=== PATIENT | female | born 1975 | race Caucasian/White ===

== ENCOUNTER → 2017-05-16 | Outpatient (CLI) | payer BC ==
[~2017-05-16] MED LIST: PREN-3
--- NOTE | 2017-05-16 17:44 | Diagnostic Imaging Report ---
Bilateral screening mammogram 2D views with tomosynthesis The current study was also evaluated with a Computer Aided Detection (CAD) system. Indication: Screening. No current complaints stated on the questionnaire. COMPARISON: None. FINDINGS: The breasts are composed of scattered fibroglandular densities. There is a partially visualized oval asymmetry along the posterior aspect of the right CC projection far posterior area measuring about 1 cm. The left breast demonstrates no mass, architectural distortion or suspicious cluster of calcification. IMPRESSION: Focal compression views with an exaggerated medial CC projection and ultrasound evaluation is recommended for far posteromedial right breast asymmetry. BI-RADS 0. ACR BI-RADS Category 0: Incomplete. (Needs additional imaging evaluation). Result letter will be mailed to the patient. Note: At least 10% of breast cancer is not imaged by mammography. Dictated by: Dictated on workstation # [id number]
== END ==
LOC: RAD 10:06
PROVIDERS: ATTEND Obstetrics & Gynecology
DX: Z12.31 Encounter for screening mammogram for malignant neoplasm of breast (principal); N64.89 Other specified disorders of breast
CPT/HCPCS: 77067

== ENCOUNTER 2017-06-30 15:12 | Day surgery (SDC) | payer BC ==
[~2017-06-30] VITALS: Ht 175.3 cm; Wt 114.8 kg
--- OUTSIDE RECORDS SUMMARY | 2017-06-30 15:16 | XMS REPORT ---
Author Author LINDSEY PARSON Organization [employer] Address Unknown Phone Unavailable Care Team Providers Care [employer] Librarian Name Role Phone LINDSEY PARSON CP Unavailable Allergies No Known Allergies Problems Problem Type Condition Code Onset Dates Condition Status Problem Need for prophylactic vaccination and inoculation, Influenza V04.81 Active Assessment Encounter for immunization Z23 Active Problem Acute upper respiratory infections of unspecified site 465.9 Active Medications No Known Medications Procedures Procedure Coding System Code Date SINGLE IMMUNIZATION ADMIN CPT-4 76134 Apr 30, 2016 FLUARIX QUAD P-FREE 3 AND UP .50 2015 CPT-4 35097 Apr 30, 2016 Results No Known Results Immunizations Vaccine Administration Date FLUARIX QUAD P-FREE 3 AND UP .50 2015Apr 30, 2016 Summary Purpose [employer] Submission
--- OUTSIDE RECORDS SUMMARY | 2017-06-30 15:16 | XMS REPORT ---
Author LINDSEY Velázquez Organization [employer] Address Unknown Phone Unavailable Care Team Providers Care Lead Loader Name Role Phone LINDSEY PARSON CP Unavailable Allergies No Known Allergies Problems Problem Type Condition Code Onset Dates Condition Status Problem Need for prophylactic vaccination and inoculation, Influenza V04.81 Active Assessment Encounter for immunization Z23 Active Problem Acute upper respiratory infections of unspecified site 465.9 Active Medications No Known Medications Procedures Procedure Coding System Code Date SINGLE IMMUNIZATION ADMIN CPT-4 45169 May 13, 2015 TDAP (BOOSTRIX) CPT-4 94234 May 13, 2015 Results No Known Results Immunizations Vaccine Administration Date TDAP (BOOSTRIX) May 13, 2015 Summary Purpose [employer] Submission
--- OUTSIDE RECORDS SUMMARY | 2017-06-30 15:16 | XMS REPORT ---
Author LINDSEY Velázquez Organization [employer] Address Unknown Phone Unavailable Care Team Providers Care Supervisor [employer] Name Role Phone LINDSEY PARSON CP Unavailable Allergies No Known Allergies Problems Problem Type Condition Code Onset Dates Condition Status Problem Need for prophylactic vaccination and inoculation, Influenza V04.81 Active Assessment Encounter for immunization Z23 Active Problem Acute upper respiratory infections of unspecified site 465.9 Active Medications No Known Medications Procedures Procedure Coding System Code Date SINGLE IMMUNIZATION ADMIN CPT-4 43335 May 01, 2015 FLUARIX QUAD (3 & UP)-GSK-2014 CPT-4 96409 May 01, 2015 Results No Known Results Immunizations Vaccine Administration Date FLUARIX QUAD (3 & UP)-GSK-2014May 01, 2015 Summary Purpose [employer] Submission
--- OUTSIDE RECORDS SUMMARY | 2017-06-30 15:16 | XMS REPORT | Continuity of Care Document ---
Author Author [facility] Organization [facility] Address Unknown Phone Unavailable Allergies Active Description Code Type Severity Reaction Onset Reported/Identified Relationship to Patient Clinical Status Yes No Known Drug Allergies [id number] Drug Allergy Unknown N/ A 06/10/2009 Yes Amoxicillin Drug Allergy 07/11/2012 Yes Amoxicillin Drug Allergy N/A N/A 07/11/2012 Medications Problems Date Dx Coded Attending Type Code Diagnosis Diagnosed By 06/13/2009 Ot 285.1 AC POSTHEMORRHAG ANEMIA 06/13/2009 Ot 285.9 ANEMIA NOS 06/13/2009 Ot 648.21 ANEMIA-DELIVERED 06/13/2009 Ot 648.22 ANEMIA-DELIVERED W P/P 06/13/2009 Ot 654.21 PREV DELIVRY W/ OR W/O MENT ANT 06/13/2009 Ot 663.31 CORD ENTANGLE NEC-DELIV 06/13/2009 Ot V06.1 [id number], COMBINED [ 06/13/2009 Ot V27.0 DELIVER-SINGLE LIVEBORN 05/19/2012 NERY ZHONG APRN R V04.81 FLU DX (3 YRS AND ABOVE, IM) 05/19/2012 SHILPA PARSON APRNYL A V04.81 FLU DX (3 YRS AND ABOVE, IM) 05/19/2012 BLANK PUENTES LINDSEY A V04.81 FLU DX (3 YRS AND ABOVE, IM) 07/11/2012 NERY ZHONG APRN R 465.9 UPPER RESPIRATORY INFECTION 07/11/2012 SHILPA PARSON APRNYL A 465.9 UPPER RESPIRATORY INFECTION 07/11/2012 SHILPA PARSON APRNYL A 465.9 UPPER RESPIRATORY INFECTION 11/06/2015 Ot 592.0 11/06/2015 Ot 780.60 11/06/2015 VERNON FOUNTAIN TRUMPET PLAYER Ot 591 11/06/2015 VERNON FOUNTAIN TRUMPET PLAYER Ot 592.0 11/06/2015 VERNON FOUNTAIN TRUMPET PLAYER Ot 599.0 11/06/2015 VERNON FOUNTAIN TRUMPET PLAYER Ot 724.5 11/06/2015 VERNON FOUNTAIN TRUMPET PLAYER Ot V13.01 02/02/2017 VERNON FOUNTAIN TRUMPET PLAYER Ot 591 HYDRONEPHROSIS 02/02/2017 VERNON FOUNTAIN TRUMPET PLAYER Ot 592.0 CALCULUS OF KIDNEY 02/02/2017 VERNON FOUNTAIN TRUMPET PLAYER Ot 599.0 URIN TRACT INFECTION NOS 02/02/2017 VERNON FOUNTAIN TRUMPET PLAYER Ot 724.5 BACKACHE NOS 02/02/2017 VERNON OFUNTAIN TRUMPET PLAYER Ot V13.01 PERSONAL HISTORY OF URINARY CALCULI 05/25/2017 RICHARD HO DO Ot N64.89 OTHER SPECIFIED DISORDERS OF BREAST 05/25/2017 RICHARD HO DO Ot Z12.31 ENCNTR SCREEN MAMMOGRAM FOR MALIGNANT NE 06/20/2017 RICHARD HO DO Ot R92.8 OTH ABN AND INCONCLUSIVE FINDINGS ON DX Procedures Code Description Performed By Performed On 72.79 VACUUM EXTRACT DEL NEC 06/10/2009 74.1 LOW CERVICAL 06/10/2009 99.77 APPL/ADMIN OF AN ADHESION BARRIER SUBSTA 06/10/2009 40713 STREP A (IN-HOUSE) 07/11/2012 Results Encounters ACCT No. Visit Date/Time Discharge Status Pt. Type Provider Facility Loc./Unit Complaint [id number] 06/01/2017 14:17:00 2016 23:59:59 CLS Outpatient RICHARD HO DO [facility] RAD R92.8 ABNORMAL MAMMO OF RIGHT BREAST [id number] 05/16/2017 10:06:00 2016 23:59:59 CLS Outpatient RICHARD HO DO [facility] RAD SCREENING [id number] 02/05/2014 08:39:00 2013 23:59:59 CLS Outpatient VERNON FOUNTAIN TRUMPET PLAYER [facility] RAD BACK PAIN, PREV HX OF STONES , [id number] 01/26/2011 18:38:00 Document Registration [id number] 06/10/2009 05:54:00 Document Registration [id number] 05/06/2014 08:20:00 05/06/2014 23: 59:59 CLS Outpatient LINDSEY PARSON APRN [id number] 05/21/2013 10:36:00 05/21/2013 23: 59:59 CLS Outpatient LINDSEY PARSON APRN [id number] 07/11/2012 14:32:00 07/11/2012 23: 59:59 CLS Outpatient NERY ZHONG APRN
[2017-06-30] MEDS ORDERED: CLINDAMYCIN 900 MG/NS 50 ML IVPB IV ONE ×2 (15:30)
[2017-06-30 15:31] VITALS: BP 118/55
[2017-06-30] MEDS ORDERED: LACTATED RINGERS 1,000 ML IV PRN (15:32)
[2017-06-30] MEDS ORDERED: fentaNYL INJECTION 100 MCG/2 ML AMP ONE ×2 (15:38→15:59)
[2017-06-30] MEDS ORDERED: SEVOFLURANE (ULTANE) 15 ML INHAL SOLN ONE ×3 (15:38→16:21)
[2017-06-30] MEDS ORDERED: LIDOCAINE PF 2% 5 ML (XYLOCAINE) VIAL ONE (15:38)
[2017-06-30] MEDS ORDERED: proPOfol 200 MG/20 ML (DIPRIVAN) VIAL IV ONE (15:38)
[2017-06-30] MEDS ORDERED: MIDAZOLAM 2 MG/2 ML (VERSED) VIAL ONE (15:38)
[2017-06-30] MEDS ORDERED: DEXAMETHASONE 10 MG/ML (DECADRON) 1 ML VIAL ONE (15:38)
[2017-06-30] MEDS ORDERED: METOCLOPRAMIDE INJ 10 MG/2 ML (REGLAN) IV ONE (15:45)
[2017-06-30] MEDS ORDERED: ONDANSETRON 4 MG/2 ML (SDV) Z0FRAN IV ONE (15:45)
[2017-06-30] MEDS ORDERED: FAMOTIDINE 20MG/2ML IV (PEPCID) IV ONE (15:45)
[2017-06-30] MEDS ORDERED: LIDOCAINE/EPI 1%-1:200,000 (XYLOCAINE) 10 ML VIAL ONE (16:07)
[2017-06-30] MEDS ORDERED: morphine INJ 10 MG/ML 1ML (SYR OR VIAL) IVP PRN (16:15)
[2017-06-30] MEDS ORDERED: ONDANSETRON 4 MG/2 ML (SDV) Z0FRAN IVP PRN (16:15)
[2017-06-30] MEDS ORDERED: PHENYLEPHRINE 100 MCG/ML 10 ML (ANESTHESIA) SYR ONE (16:19)
--- NOTE | 2017-06-30 16:25 | Progress Note-Post Operative ---
Post-Operative Progess Note Surgeon (s)/Color Stripper (s) Surgeon DANILO LINDO DO Color Stripper: Vinay Alba MS III Pre-Operative Diagnosis RIGHT BREAST ABCESS Post-Operative Diagnosis Right Breast Abscess Right Breast mass Procedure & Operative Findings Date of Procedure 06/30/17 Procedure Performed/Findings 1. Excision breast mass 2. I&D breast abscess with packing Anesthesia Type GET Estimated Blood Loss Estimated blood loss (mL): less than 5ml Specimens/Packing Specimens Removed 1. right breast mass 2. abscess culture DANILO LINDO DO Jun 30, 2017 16:25
[2017-06-30] MEDS ORDERED: HYDR-3820 PO (16:26)
--- NOTE | 2017-06-30 16:28 | Discharge Inst-Surgical ---
Discharge Inst-Surgical Depart Medication/Instructions New, Converted or Re-Newed RX: RX Given to Pt/Family Patient Instructions Follow up Appt: Make appointment for 1 week. Instructions: No strenuous activity. May shower in 24 hours, no tub bath or soaking. Use incentive spirometer at home as directed. No Smoking Skin/Wound Care: May remove bandages in am; go to Dr. Soliman's office tomorrow for dressing change. Symptoms to Report: Appetite Changes, Extremity Discoloration, Numbness/Tingling, Swelling Increased , Bleeding Excessive, Eyesight Changes, Pain Increased, Urine Color Change, Constipation(Persistent), Fever over 101 degree F, Pain/Pressure in chest, Urinating Difficulty, Cough Up/Vomit Blood, Heart Beat Irreg/Pounding, Pain/ Pressure in jaw, Vaginal Bleeding Increase, Cramps in feet or legs, Lightheadedness, Pain/Pressure in shoulder, Diarrhea(Persistent), Memory Changes Suddenly, Questions/Concerns, Weight gain consecutive days, Dizziness/ Fainting, Nausea/Vomiting, Shortness of Breath, Weight gain over 2 pounds If questions or concerns contact your physician Or seek help at emergency department. Activity Activity as Tolerated: Yes Activity Instructions: Avoid Stress to Incision Driving Instructions: No Driving/Refer to Dr. Paula Discharge Diet: No Restrictions Diet After 24 Hours: Clear Liquid if Nauseous If Any Problems/Questions/Issu: Contact Your Physician, Go to Emergency Room Skin/Wound Care Infection Signs and Symptoms: Increased Redness, Foul Odor of Wound, Increased Drainage, Skin Itchy or Has a Rash, Increased Swelling, Temperature Above 101 F Bathing Instructions: Shower Ice Pack: Ice On and Off Site DANILO SOLIMAN DO Jun 30, 2017 16:28
[2017-06-30 17:15] VITALS: BP 131/72
[2017-06-30 17:45] VITALS: BP 129/69
[2017-06-30 18:15] VITALS: BP 132/72
[2017-06-30 18:20] VITALS: BP 132/72
--- NOTE | 2017-06-30 22:32 | OPERATIVE REPORT ---
DATE OF SERVICE: 06/30/2017 PREOPERATIVE DIAGNOSIS: Right breast abscess. POSTOPERATIVE DIAGNOSES: 1. Right breast mass. 2. Right breast abscess. PROCEDURE: 1. Excision of right breast mass. 2. Incision and drainage with packing, right breast. SURGEON: Te Soliman D.O. HOP WEIGHER: Medical student, Vinay Nguyen. SPECIMEN: 1. Right breast mass. 2. Abscess culture. BLOOD LOSS: Less than 5 mL FLUIDS: Per Anesthesia. POSTOPERATIVE CONDITION: Stable. INDICATIONS FOR PROCEDURE: The patient is a 42-year-old female who has been having drainage and abscess, redness and pain in the right breast, sent over for incision and drainage with possible packing. FINDINGS: The patient had a large purulent abscess, but also noted a mass in this area that looked like it might have been just a cyst. This was excised and removed, also got a culture of the purulent fluid. PROCEDURE NOTE: After informed consent was obtained, the patient was brought to the operating room, placed on the table in supine position. She was sterilely prepped and draped in normal fashion. Local lidocaine was used to infiltrate the skin above the red inflamed area and fullness in the right breast as well as around it in a regional block. I made an incision with a #11 blade, carried down through the skin into the subcutaneous tissue. Upon entering, immediately got yellowish-whitish what looked like purulent fluid. This was expressed, got fluid, got a culture, sent to pathology and then carefully started flushing this out with saline, but while doing this noticed a mass and so elected to remove this mass, grasped the skin edges and created flaps superiorly and inferiorly cutting around this with a Bovie electrocautery and cutting this mass out en bloc. It looked like it may have just been an infected cyst, we will send to pathology for determination. Able to completely remove this mass en bloc and send it to pathology. Copiously irrigated with normal saline. Looked around, did not see any other obvious pathology. Bleeding was controlled with Bovie electrocautery. Did not see any other purulent fluid or necrotic tissue and at this point elected to close the incision that was made with just a single 4-0 undyed Monocryl subcuticular stitch right in the middle of the incision and then placed iodoform packing on either side of this suture into the wound. Area was then cleaned and dried, dressing placed. The patient then transferred to recovery room in stable condition. Sponges and needle count correct at the end of the case. Job ID: [id number] DocumentID: [id number] Dictated Date: 06/30/2017 16:31:59 Pony Trimmer Date: 06/30/2017 20:15:43 Dictated By: TE SOLIMAN DO
== END 2017-06-30 18:20 | disposition home or self-care (01) ==
LOC: SDC 15:12
PROVIDERS: ATTEND Surgery
DX: N61.1 Abscess of the breast and nipple (principal); N63.10 Unspecified lump in the right breast, unspecified quadrant; G56.91 Unspecified mononeuropathy of right upper limb
CPT/HCPCS: 84703; 87070; 87075; 87205; 94664

== ENCOUNTER 2017-09-22 05:37 | Outpatient (CLI) | payer BC ==
[~2017-09-22] VITALS: Ht 175.3 cm; Wt 122.5 kg
[~2017-09-22 05:37] MED LIST changes: +HYDR-3820 PO
[2017-09-22] MEDS ORDERED: SERT25TA PO (12:39)
[2017-09-22] MEDS ORDERED: LACT1CAP62 PO (12:39)
== END 2017-09-22 12:46 ==
LOC: PREOP 05:37
PROVIDERS: ATTEND Surgery
DX: Z01.818 Encounter for other preprocedural examination (principal); N63.0 Unspecified lump in unspecified breast

== ENCOUNTER 2017-09-29 05:57 | Day surgery (SDC) | payer BC ==
[~2017-09-29] VITALS: Ht 175.3 cm; Wt 122.5 kg
[~2017-09-29 05:57] MED LIST changes: +LACT1CAP62 PO; +SERT25TA PO
--- OUTSIDE RECORDS SUMMARY | 2017-09-29 06:00 | XMS REPORT | Continuity of Care Document ---
Author Author [facility] Organization [facility] Address Unknown Phone Unavailable Allergies Active Description Code Type Severity Reaction Onset Reported/Identified Relationship to Patient Clinical Status Yes No Known Drug Allergies [id number] Drug Allergy Unknown N/A 06/10/2009 Yes Amoxicillin Drug Allergy 07/11/2012 Yes Amoxicillin Drug Allergy N/A N/A 07/11/2012 Yes amoxicillin [id number] Drug Allergy Mild HIVES 09/22/2017 Medications There is no data. Problems Date Dx Coded Attending Type Code Diagnosis Diagnosed By 06/13/2009 Ot 285.1 AC POSTHEMORRHAG ANEMIA 06/13/2009 Ot 285.9 ANEMIA NOS 06/13/2009 Ot 648.21 ANEMIA- DELIVERED 06/13/2009 Ot 648.22 ANEMIA- DELIVERED W P/P 06/13/2009 Ot 654.21 PREV DELIVRY W/ OR W/O MENT ANT 06/13/2009 Ot 663.31 CORD ENTANGLE NEC-DELIV 06/13/2009 Ot V06.1 DIPHTHERIA- TETANUS-PERTUSSIS, COMBINED [ 06/13/2009 Ot V27.0 DELIVER- SINGLE LIVEBORN 05/19/2012 NERY ZHONG APRN R V04.81 FLU DX (3 YRS AND ABOVE, IM) 05/19/2012 SHILPA PARSON APRNYL A V04.81 FLU DX (3 YRS AND ABOVE, IM) 05/19/2012 SHILPA PARSON APRNYL A V04.81 FLU DX (3 YRS AND ABOVE, IM) 07/11/2012 NERY ZHONG APRN R 465.9 UPPER RESPIRATORY INFECTION 07/11/2012 LINDSEY PARSON APRN A 465.9 UPPER RESPIRATORY INFECTION 07/11/2012 SHILPA PARSON APRNYL A 465.9 UPPER RESPIRATORY INFECTION 11/06/2015 Ot 592.0 11/06/2015 Ot 780.60 11/06/2015 VERNON FOUNTAIN Ot 591 11/06/2015 VERNON FOUNTAINP Ot 592.0 11/06/2015 VERNON FOUNTAIN AIRCRAFT ENGINE MECHANIC Ot 599.0 11/06/2015 VERNON FOUNTAIN AIRCRAFT ENGINE MECHANIC Ot 724.5 11/06/2015 VERNON FOUNTAIN AIRCRAFT ENGINE MECHANIC Ot V13.01 02/02/2017 VERNON FOUNTAIN AIRCRAFT ENGINE MECHANIC Ot 591 HYDRONEPHROSIS 02/02/2017 VERNON FOUNTAIN AIRCRAFT ENGINE MECHANIC Ot 592.0 CALCULUS OF KIDNEY 02/02/2017 VERNON FOUNTAIN AIRCRAFT ENGINE MECHANIC Ot 599.0 URIN TRACT INFECTION NOS 02/02/2017 VERNON FOUNTAIN AIRCRAFT ENGINE MECHANIC Ot 724.5 BACKACHE NOS 02/02/2017 VERNON FOUNTAIN AIRCRAFT ENGINE MECHANIC Ot V13.01 PERSONAL HISTORY OF URINARY CALCULI 05/25/2017 RICHARD HO DO Ot N64.89 OTHER SPECIFIED DISORDERS OF BREAST 05/25/2017 RICHARD HO DO Ot Z12.31 ENCNTR SCREEN MAMMOGRAM FOR MALIGNANT NE 06/20/2017 RICHARD HO DO Ot R92.8 OTH ABN AND INCONCLUSIVE FINDINGS ON DX 06/30/2017 DANILO LINDO DO Ot G56.91 UNSPECIFIED MONONEUROPATHY OF RIGHT UPPE 06/30/2017 DANILO LINDO DO Ot N61.1 ABSCESS OF THE BREAST AND NIPPLE 06/30/2017 DANILO LINDO DO Ot N63.10 UNSPECIFIED LUMP IN THE RIGHT BREAST, UN 07/04/2017 DANILO LINDO DO Ot G56.91 UNSPECIFIED MONONEUROPATHY OF RIGHT UPPE 07/04/2017 DANILO LINDO DO Ot N61.1 ABSCESS OF THE BREAST AND NIPPLE 07/04/2017 DANILO LINDO DO Ot N63.10 UNSPECIFIED LUMP IN THE RIGHT BREAST, UN 07/06/2017 DANILO LINDO DO Ot G56.91 UNSPECIFIED MONONEUROPATHY OF RIGHT UPPE 07/06/2017 DANILO LINDO DO Ot N61.1 ABSCESS OF THE BREAST AND NIPPLE 07/06/2017 DANILO LINDO DO Ot N63.10 UNSPECIFIED LUMP IN THE RIGHT BREAST, UN 09/26/2017 DANILO LINDO DO Ot N63.0 UNSPECIFIED LUMP IN UNSPECIFIED BREAST 09/26/2017 DANILO LINDO DO Ot Z01.818 ENCOUNTER FOR OTHER PREPROCEDURAL EXAMIN Procedures Code Description Performed By Performed On 72.79 VACUUM EXTRACT DEL NEC 06/10/2009 74.1 LOW CERVICAL 06/10/2009 99.77 APPL/ADMIN OF AN ADHESION BARRIER SUBSTA 06/10/2009 [id number] STREP A (IN-HOUSE) 07/11/2012 Results Test Result Range Urine beta human chorionic gonadotropin (hCG) measurement - 06/30/17 15:20 Urine beta human chorionic gonadotropin (hCG) measurement NEGATIVE NEGATIVE Bacteria identification in isolate by anaerobe culture - 06/30/17 16:14 QUANTITY OF GROWTH Moderate Growth NRG Bacteria identification in isolate by anaerobe culture [id number] NRG Gram stain microscopy - 06/30/17 16:14 GRAM STAIN RESULT MODERATE # GRAM NEGATIVE RODS NRG Bacteria identification in wound by culture - 06/30/17 16:14 Bacteria identification in wound by culture [id number] NRG QUANTITY OF GROWTH Moderate Growth NRG Encounters ACCT No. Visit Date/Time Discharge Status Pt. Type Provider Facility Loc./Unit Complaint [id number] 09/22/2017 05:37:00 09/22/2017 12:46:00 DIS Outpatient DANILO LINDO DO [facility] PREOP RIGHT BREAST MASS [id number] 06/30/2017 15:12:00 06/30/2017 18:20:00 DIS Outpatient LOLYBRANDON DANILO BERNSTEIN [facility] SDC RIGHT BREAST ABSCESS [id number] 06/01/2017 14:17:00 06/01/2017 23:59:59 CLS Outpatient RICHARD HO DO [facility] RAD R92.8 ABNORMAL MAMMO OF RIGHT BREAST [id number] 05/16/2017 10:06:00 05/16/2017 23:59:59 CLS Outpatient RICHARD HO DO [facility] RAD SCREENING [id number] 02/05/2014 08:39:00 02/05/2014 23:59:59 CLS Outpatient VERNON FOUNTAIN [facility] RAD BACK PAIN, PREV HX OF STONES, [id number] 09/29/2017 08:00:00 PEN Preadmit DANILO LINDO DO [facility] RIGHT BREAST MASS [id number] 01/26/2011 18:38:00 Document Registration [id number] 06/10/2009 05:54:00 Document Registration [id number] 05/06/2014 08:20:00 05/06/2014 23:59:59 CLS Outpatient LINDSEY PARSON APRN [id number] 05/21/2013 10:36:00 05/21/2013 23:59:59 CLS Outpatient LINDSEY PARSON APRN [id number] 07/11/2012 14:32:00 07/11/2012 23:59:59 CLS Outpatient NERY ZHONG APRN
[2017-09-29 06:20] VITALS: BP 136/71
[2017-09-29] MEDS ORDERED: LACTATED RINGERS 1,000 ML IV PRN (06:34)
[2017-09-29] MEDS ORDERED: CLINDAMYCIN 600 MG/50 ML IVPB 50 ML IV ONE (06:45)
[2017-09-29] MEDS ORDERED: ONDANSETRON 4 MG/2 ML (SDV) Z0FRAN ONE (06:59)
[2017-09-29] MEDS ORDERED: proPOfol 200 MG/20 ML (DIPRIVAN) VIAL IV ONE (06:59)
[2017-09-29] MEDS ORDERED: LIDOCAINE PF 2% 5 ML (XYLOCAINE) VIAL ONE (06:59)
[2017-09-29] MEDS ORDERED: MIDAZOLAM 2 MG/2 ML (VERSED) VIAL ONE (07:00)
[2017-09-29] MEDS ORDERED: fentaNYL INJECTION 100 MCG/2 ML AMP ONE (07:00)
[2017-09-29] MEDS ORDERED: LIDOCAINE/EPI 1%-1:200,000 (XYLOCAINE) 10 ML VIAL ONE (07:07)
[2017-09-29] MEDS ORDERED: PROPOFOL INJECTION 50 ML IV ONE (08:08)
--- NOTE | 2017-09-29 08:12 | Progress Note-Pre Operative ---
Pre-Operative Progress Note H&P Reviewed The H&P was reviewed, patient examined and no changes noted. Time Seen by Provider: 08:02 Date H&P Reviewed: Sep 29, 2017 Time H&P Reviewed: 08:05 Pre-Operative Diagnosis: right breast mass DANILO LINDO DO Sep 29, 2017 08:12
--- NOTE | 2017-09-29 08:40 | Progress Note-Post Operative ---
Post-Operative Progess Note Surgeon (s)/Building Serviceman (s) Surgeon DANILO LINDO DO Building Serviceman: none Pre-Operative Diagnosis right breast mass Post-Operative Diagnosis same pending pathology Procedure & Operative Findings Date of Procedure 09/29/17 Procedure Performed/Findings Excision right breast mass Anesthesia Type MAC Estimated Blood Loss Estimated blood loss (mL): scant Specimens/Packing Specimens Removed right breast mass DANILO LINDO DO Sep 29, 2017 08:40
[2017-09-29] MEDS ORDERED: ACHD5005 PO (08:41)
--- NOTE | 2017-09-29 08:42 | Discharge Inst-Surgical ---
Discharge Inst-Surgical Depart Medication/Instructions New, Converted or Re-Newed RX: RX Given to Pt/Family Patient Instructions Follow up Appt: Make appointment for 1 week. Instructions: No lifting greater than 10 pounds. No strenuous activity. May shower in 24 hours, no tub bath or soaking. Use incentive spirometer at home as directed. No Smoking Skin/Wound Care: May remove bandages. You need to leave the dermabond on over incision it will fall off on its own. Symptoms to Report: Appetite Changes, Extremity Discoloration, Numbness/Tingling, Swelling Increased , Bleeding Excessive, Eyesight Changes, Pain Increased, Urine Color Change, Constipation(Persistent), Fever over 101 degree F, Pain/Pressure in chest, Urinating Difficulty, Cough Up/Vomit Blood, Heart Beat Irreg/Pounding, Pain/ Pressure in jaw, Vaginal Bleeding Increase, Cramps in feet or legs, Lightheadedness, Pain/Pressure in shoulder, Diarrhea(Persistent), Memory Changes Suddenly, Questions/Concerns, Weight gain consecutive days, Dizziness/ Fainting, Nausea/Vomiting, Shortness of Breath, Weight gain over 2 pounds If questions or concerns contact your physician Or seek help at emergency department. Activity Activity as Tolerated: Yes Activity Instructions: Avoid Stress to Incision Driving Instructions: No Driving/Refer to Dr. Paula Discharge Diet: No Restrictions Diet After 24 Hours: Clear Liquid if Nauseous If Any Problems/Questions/Issu: Contact Your Physician, Go to Emergency Room Skin/Wound Care Infection Signs and Symptoms: Increased Redness, Foul Odor of Wound, Increased Drainage, Skin Itchy or Has a Rash, Increased Swelling, Temperature Above 101 F Bathing Instructions: Shower Operative Area Clean and Dry: Keep Incision Clean/Dry Stitches/Ro/Dermabond Dis: Dermabond Ice Pack: Ice On and Off Site (for pain as needed.) DANILO LINDO DO Sep 29, 2017 08:42
[2017-09-29] MEDS ORDERED: morphine INJ 10 MG/ML 1ML (SYR OR VIAL) IVP PRN (09:00)
[2017-09-29 09:15] VITALS: BP 130/79
[2017-09-29 09:45] VITALS: BP_SYST 126; BP_SYST 130; BP_DIAS 73; BP_DIAS 79
--- NOTE | 2017-09-29 10:05 | Anesthesia-General Post-Op ---
General Patient Condition Mental Status/LOC: Same as Preop Cardiovascular: Satisfactory Nausea/Vomiting: Absent Respiratory: Satisfactory Pain: Controlled Complications: Absent Post Op Complications Complications None Follow Up Care/Instructions Patient Instructions None needed. Anesthesia/Patient Condition Patient Condition Patient is doing well, no complaints, stable vital signs, no apparent adverse anesthesia problems. No complications reported per nursing. D/C home per [facility] Criteria: Yes CARLOS BUCKNER CRNA Sep 29, 2017 10:05
--- NOTE | 2017-09-29 18:55 | OPERATIVE REPORT ---
DATE OF SERVICE: 09/29/2017 PREOPERATIVE DIAGNOSES: Right breast mass. POSTOPERATIVE DIAGNOSIS: Right breast mass, pending pathology. PROCEDURE PERFORMED: Excision of right breast mass. SURGEON: Te Soliman DO. FORESTRY AND WILDLIFE MANAGER: None. ANESTHESIA: IV sedation by the DYNAMOMETER REPAIRER. SPECIMEN: Right breast mass. BLOOD LOSS: Scant. FLUIDS: Per anesthesia. POSTOPERATIVE CONDITION: Stable. INDICATION FOR PROCEDURE: The patient is a 42-year-old female, who has a right breast mass. She had another one previously, had turned out to be a sebaceous cyst that had gotten infected. This was causing pain and increased in size and she wanted this removed. FINDINGS: The patient had her right breast mass removed. It looked like it may have been a sebaceous cyst. PROCEDURE NOTE: After informed consent was obtained, the patient was brought to the operating room, placed on the table in supine position. She was sterilely prepped and draped in normal fashion. Local lidocaine was used to infiltrate the skin above the mass and then around in a regional block. An incision with #15 blade, carried down through the skin into subcutaneous tissue, then deepened down the subcutaneous tissue with Bovie electrocautery going around this mass, did get into a little bit of a sebaceous material expressed, able to remove this en bloc, passed this off table and sent it to pathology. Copiously irrigated the incision with normal saline. Hemostasis obtained using Bovie electrocautery and then closed the incision with 3 interrupted 4-0 undyed Monocryl subcuticular stitches. Area was cleaned and dried. Dermabond was placed as well as a dressing and the patient then transferred to recovery room in stable condition. Sponge, instrument and needle counts were correct at the end of the case. Job ID: [id number] DocumentID: [id number] Dictated Date: 09/29/2017 11:57:12 Pediatric Physician Date: 09/29/2017 18:54:34 Dictated By: TE SOLIMAN DO
== END 2017-09-29 09:55 | disposition home or self-care (01) ==
LOC: SDC 05:57
PROVIDERS: ATTEND Surgery
DX: N63.12 Unspecified lump in the right breast, upper inner quadrant (principal); F32.9 Major depressive disorder, single episode, unspecified; E66.01 Morbid (severe) obesity due to excess calories; Z68.39 Body mass index [BMI] 39.0-39.9, adult
CPT/HCPCS: 84703; 87081; 88305

== ENCOUNTER → 2018-12-22 | Outpatient (CLI) | payer BC ==
[~2018-12-22] MED LIST changes: +ACHD5005 PO
--- NOTE | 2018-12-22 20:05 | Diagnostic Imaging Report ---
INDICATION: Routine screening. Comparison is made with prior mammogram from 05/16/2017. 2-D and 3-D bilateral screening mammography was performed with CAD The current study was also evaluated with a Computer Aided Detection (CAD) system. Both breasts are primarily involutional. No dominant mass or malignant appearing microcalcifications are seen. There is a circumscribed density in the medial aspect of the right breast posterior depth. This appears to be superiorly located on tomographic images and may represent a cyst. No other masses are seen. IMPRESSION: No mammographic features suspicious for malignancy ACR BI-RADS Category 2: Benign findings. Result letter will be mailed to the patient. Note: At least 10% of breast cancer is not imaged by mammography. Dictated by: Dictated on workstation # [id number]
== END ==
LOC: RAD 08:09
PROVIDERS: ATTEND Obstetrics & Gynecology
DX: Z12.31 Encounter for screening mammogram for malignant neoplasm of breast (principal); Z01.419 Encounter for gynecological examination (general) (routine) without abnormal findings
CPT/HCPCS: 77067

== ENCOUNTER → 2020-01-01 | Outpatient (CLI) | payer BC ==
[~2020-01-01] MED LIST changes: +ACHYD1T PO; -HYDR-3820 PO
--- NOTE | 2020-01-01 18:32 | Diagnostic Imaging Report ---
INDICATION: Routine screening. COMPARISON is made with prior mammograms from 12/22/2018 and 05/16/2017. 2-D and 3-D bilateral screening mammography was performed with CAD. Scattered fibroglandular densities are identified bilaterally. The parenchymal pattern is stable. No dominant mass or malignant appearing microcalcifications are identified. Axillae are unremarkable. IMPRESSION: BI-RADS Category 1 No mammographic features suspicious for malignancy are identified. Dictated by: Dictated on workstation # [id number]
== END ==
LOC: RAD 12:48
PROVIDERS: ATTEND Obstetrics & Gynecology
DX: Z12.31 Encounter for screening mammogram for malignant neoplasm of breast (principal)
CPT/HCPCS: 77063; 77067

== ENCOUNTER → 2021-08-20 | Outpatient (CLI) | payer BC ==
--- NOTE | 2021-08-20 18:42 | Diagnostic Imaging Report ---
INDICATION: Routine screening. COMPARISON is made with prior mammograms from 01/01/2020 and 12/22/2018. 2-D and 3-D bilateral screening mammography was performed with CAD. Scattered fibroglandular densities are identified bilaterally. The parenchymal pattern is stable. No mass or malignant-appearing microcalcifications are seen. Axillae are unremarkable. IMPRESSION: BI-RADS Category 1 No mammographic features suspicious for malignancy are identified. ACR BI-RADS Category 1: Negative. Result letter will be mailed to the patient. Note: At least 10% of breast cancer is not imaged by mammography. Dictated by: Dictated on workstation # [id number]
== END ==
LOC: RAD 10:48
PROVIDERS: ATTEND Obstetrics & Gynecology
DX: Z12.31 Encounter for screening mammogram for malignant neoplasm of breast (principal)
CPT/HCPCS: 77063; 77067

== ENCOUNTER → 2022-11-24 | Outpatient (CLI) | payer BC ==
--- NOTE | 2022-11-24 19:23 | Diagnostic Imaging Report ---
INDICATION: Routine screening. COMPARISON: Prior mammograms from 08/20/2021 and 01/01/2020. EXAMINATION: 2D and 3D bilateral screening mammography was performed with CAD. The current study was also evaluated with a Computer Aided Detection (CAD) system. FINDINGS: Scattered fibroglandular densities are identified, bilaterally. The parenchymal pattern is stable. No mass or malignant appearing microcalcifications are seen. Axillae are unremarkable. IMPRESSION: No mammographic features suspicious for malignancy are identified. ACR BI-RADS Category 1: Negative. Result letter will be mailed to the patient. Note: At least 10% of breast cancer is not imaged by mammography. Dictated by: Dictated on workstation # [id number]
== END ==
LOC: RAD 08:00
PROVIDERS: ATTEND Obstetrics & Gynecology
DX: Z12.31 Encounter for screening mammogram for malignant neoplasm of breast (principal)
CPT/HCPCS: 77063; 77067